=== PATIENT | male | born 1950 | race Caucasian/White ===

== ENCOUNTER 2022-04-07 10:59 | Emergency (ER) | payer OTHER ==
[~2022-04-07] VITALS: Ht 172.7 cm; Wt 98.9 kg
[2022-04-07 11:16] VITALS: BP 139/93
[2022-04-07] MEDS ORDERED: NIRM1TAB PO (12:23)
[2022-04-07] MEDS ORDERED: ACET-9800 PO (12:24)
[2022-04-07] MEDS ORDERED: ONDA-188 PO (12:24)
--- NOTE | 2022-04-07 12:45 | NUR ---
71/M PRESENTS TO ED WITH C/O COUGH AND RUNNY NOSE SINCE YESTERDAY. REPORTS TAKING TYLENOL WITH NO RELIEF, DENIES SOB, CP. STATES HIM AND HIS HAD POSITIVE AT HOME COVID TESTS YESTERDAY.
--- NOTE | 2022-04-07 13:00 | NUR ---
Patient discharged with v/s stable. Written and verbal after care instructions ABOUT COVID-19 given and explained. Patient alert, oriented and verbalized understanding of instructions. Ambulatory with steady gait. All questions addressed prior to discharge. ID band removed. Patient advised to follow up with PMD. Rx of TYLENOL EXTRA STRENGTH, ZOFRAN AND PAXLOVID CO PACK given. Patient educated on indication of medication including possible reaction and side effects. Opportunity to ask questions provided and answered.
== END 2022-04-07 13:00 | disposition home or self-care (01) ==
LOC: MED 10:59
DX: U07.1 COVID-19 (principal); I10 Essential (primary) hypertension; E78.5 Hyperlipidemia, unspecified; Z86.73 Personal history of transient ischemic attack (TIA), and cerebral infarction without residual deficits
CPT/HCPCS: 99283